=== PATIENT | female | born 2000 | race Caucasian/White ===

== ENCOUNTER 2024-08-19 17:15 | Emergency (ER) | payer MEDICAID ==
[~2024-08-19] VITALS: Ht 160 cm; Wt 79.3 kg
[2024-08-19 17:29] VITALS: TEMP 97.8
[2024-08-19 20:20] VITALS: BP 112/73; PULSE 89; O2SAT 97
[2024-08-19] MEDS: LIDOcaine 5% patch TP ONE (20:54)
[2024-08-19] MEDS: cyclobenzaprine 10mg tablet PO ONE (20:54)
[2024-08-19 20:55] VITALS: RESP 16
[2024-08-19] MEDS: ketorolac trometh 30MG/ML vial 30 MG/ML VIAL IM ONE (20:55)
[2024-08-19] MEDS: dexamethasone sod phosphate 10mg/ml inj IM STA (20:55)
[2024-08-19] MEDS ORDERED: LIDO700A32 TOP (21:47)
[2024-08-19] MEDS ORDERED: PRED20TA PO (21:47)
[2024-08-19] MEDS ORDERED: CYCL-1 PO (21:47)
== END 2024-08-19 22:09 | disposition home or self-care (01) ==
LOC: ER 17:17
DX: S33.5XXA Sprain of ligaments of lumbar spine, initial encounter (principal); X58.XXXA Exposure to other specified factors, initial encounter; Y93.89 Activity, other specified; Y92.89 Other specified places as the place of occurrence of the external cause; Y99.8 Other external cause status
CPT/HCPCS: 72100; 96372; 99284; J1100; J1885